=== PATIENT | male | born 1945 | race Caucasian/White ===

== ENCOUNTER → 2018-08-14 | Outpatient (CLI) | payer MEDICARE | END | disposition home or self-care (01) | LOC: RAD 08:54 | PROVIDERS: ATTEND Surgery | DX: K50.90 Crohn's disease, unspecified, without complications (principal); Z93.2 Ileostomy status | CPT/HCPCS: 74270 ==

== ENCOUNTER → 2018-10-01 | Outpatient (CLI) | payer MEDICARE ==
[~2018-10-01] MED LIST: LEVO50TA5 PO; MERC50TA17 PO; MULT1TAB60 PO; NAPR220C2 PO; SIMV20TA3 PO; TEST5GEL18 TP
[2018-10-01 10:12] LABS: MEAN CORPUSCULAR HEMOGLOBIN 35.1 pg (27.5-34.5); MEAN CORPUSCULAR VOLUME 100.5 fL (81-97); MEAN PLATELET VOLUME 8.9 fL (7.4-10.4); PLATELET COUNT 248 x10^3/uL (130-400); RED BLOOD COUNT 3.72 x10^6/uL (4.38-5.82); RED CELL DISTRIBUTION WIDTH 23.3 % (9.4-14.8)
[2018-10-01 10:18] LABS: ALBUMIN 4.1 g/dL (3.4-5.0); ANION GAP 5 mmol/L (5-15); CALCIUM 9.5 mg/dL (8.5-10.1); CHLORIDE 104 mmol/L (98-107)
[2018-10-01 10:22] LABS: ALANINE AMINOTRANSFERASE 31 U/L (12-78); ALKALINE PHOSPHATASE 76 U/L (45-117); BILIRUBIN,TOTAL 0.7 mg/dL (0.2-1.0); CREATININE 1.82 mg/dL (0.7-1.3); TOTAL PROTEIN 7.8 g/dL (6.4-8.2)
[2018-10-01 10:35] LABS: ANISOCYTOSIS 1+; BASOPHILS # (AUTO) 0.01 x10^3/uL (0-0.1); BASOPHILS % (AUTO) 0 % (0-1); EOSINOPHILS # (AUTO) 0.07 x10^3/uL (0-0.4); EOSINOPHILS % (AUTO) 2 % (1-7); LYMPHOCYTES # (AUTO) 0.71 x10^3/uL (1-3.4); LYMPHOCYTES % (AUTO) 18 % (22-44); MD MORPH REVIEW ONLY; MONOCYTES # (AUTO) 0.23 x10^3/uL (0.2-0.8); MONOCYTES % (AUTO) 6 % (2-9); NEUTROPHILS # (AUTO) 2.92 x10^3/uL (1.8-6.8); NEUTROPHILS % (AUTO) 74 % (42-75)
[2018-10-01 10:36] LABS: <PLATELET ESTIMATE> ADEQUATE; <PLT MORPHOLOGY> NORMAL PLT MORPH
== END | disposition home or self-care (01) ==
LOC: STAR 08:56
PROVIDERS: ATTEND Surgery
DX: Z01.818 Encounter for other preprocedural examination (principal)
CPT/HCPCS: 36415; 80053; 85025; 93005

== ENCOUNTER 2018-10-09 09:00 | Inpatient (IN) | payer MEDICARE ==
[~2018-10-09] VITALS: Ht 189.2 cm; Wt 90.8 kg
[2018-10-09] MEDS ORDERED: LACTATED RINGERS 1,000 ML IV SCH (11:20)
[2018-10-09] MEDS ORDERED: MIDAZOLAM 1 MG/ML, 2ML ONE (12:17)
[2018-10-09] MEDS ORDERED: FENTANYL PF 250 MCG/5ML ONE (12:17)
[2018-10-09] MEDS ORDERED: ONDANSETRON 2MG/ML, 2ML ONE (12:20)
[2018-10-09] MEDS ORDERED: ROCURONIUM 10 MG/ML,10ML ONE (12:20)
[2018-10-09] MEDS ORDERED: CEFOTETAN 2 GM ONE (12:20)
[2018-10-09] MEDS ORDERED: SUCCINYLCHOLINE 20 MG/ML, 10ML ONE (12:20)
[2018-10-09] MEDS ORDERED: PROPOFOL 10 MG/ML, 20ML ONE (12:20)
[2018-10-09] MEDS ORDERED: DEXAMETHASONE 4 MG/ML, 1ML ONE (12:20)
[2018-10-09] MEDS ORDERED: FENTANYL PF 100 MCG/2ML ONE ×2 (14:04→14:50)
[2018-10-09] MEDS ORDERED: PROMETHAZINE 12.5 MG SUPP PR PRN (14:30)
[2018-10-09] MEDS ORDERED: MIDAZOLAM 1 MG/ML, 2ML IV PRN (14:30)
[2018-10-09] MEDS ORDERED: LORazepam 2 MG/ML, 1ML IVPush PRN (14:30)
[2018-10-09] MEDS ORDERED: EPHEDRINE 50 MG/ML, 1ML IM PRN (14:30)
[2018-10-09] MEDS ORDERED: DIPHENHYDRAMINE 50 MG/ML, 1ML IVPush PRN ×2 (14:30→16:30)
[2018-10-09] MEDS ORDERED: ACETAMINOPHEN 325 MG TABLET PO PRN (14:30)
[2018-10-09] MEDS ORDERED: OXYcodone 5 MG/5 ML ORAL.SOL UDC PO PRN (14:30)
[2018-10-09] MEDS ORDERED: ONDANSETRON ODT 8 MG PO PRN (14:30)
[2018-10-09] MEDS ORDERED: PROMETHAZINE 25 MG/ML, 1ML IV PRN (14:30)
[2018-10-09] MEDS ORDERED: LABETALOL 5MG/ML, 20ML IV PRN (14:30)
[2018-10-09] MEDS ORDERED: PROMETHAZINE 25 MG SUPP PR PRN (14:30)
[2018-10-09] MEDS ORDERED: ONDANSETRON 2MG/ML, 2ML IV PRN ×2 (14:30→16:30)
[2018-10-09] MEDS ORDERED: EPHEDRINE 50 MG/ML, 1ML IVPush PRN (14:30)
[2018-10-09] MEDS ORDERED: OXYcodone 5 MG/5 ML ORAL.SOL UDC ONE (14:50)
[2018-10-09] MEDS: FENTANYL PF 100 MCG/2ML IV PRN ×2 (15:01→15:09)
[2018-10-09] MEDS ORDERED: morphine SULFATE 10 MG/ML, 1ML ONE (15:11)
[2018-10-09] MEDS: MORPHINE SULFATE 4 MG/ML, 1ML IVPush PRN ×2 (15:13→15:20)
[2018-10-09 16:15] VITALS: BP 112/42
[2018-10-09] MEDS ORDERED: ACETAMINOPHEN 100 ML IV PRN (16:30)
[2018-10-09] MEDS ORDERED: CALCIUM CARBONATE 500 MG TAB.CHEW PO PRN (16:30)
[2018-10-09] MEDS ORDERED: DEXAMETHASONE 4 MG/ML, 1ML IVPush PRN (16:30)
[2018-10-09] MEDS ORDERED: HYDROmorphone 1 MG/ML, 1ML IVPush PRN (16:30)
[2018-10-09] MEDS ORDERED: SCOPOLAMINE PATCH, 1.5MG PATCH.TD72 TD PRN (16:30)
[2018-10-09] MEDS ORDERED: HALOPERIDOL 5 MG/ML IVPush PRN (16:30)
[2018-10-09] MEDS ORDERED: ACETAMINOPHEN 100 ML IV SCH (16:30)
[2018-10-09] MEDS: D5%-0.45NACL+KCL 20MEQ 1,000 ML IV SCH (17:19)
[2018-10-09] MEDS: ACETAMINOPHEN 500 MG TABLET PO SCH ×2 (17:20→22:51)
[2018-10-09] MEDS: OXYcodone IR 5MG TABLET PO PRN ×2 (18:27→22:51)
[2018-10-09 20:12] VITALS: BP 114/53
[2018-10-09] MEDS: SIMVASTATIN 20 MG TABLET PO SCH (21:26)
[2018-10-09] MEDS: IBUPROFEN 800 MG TABLET PO SCH (21:26)
[2018-10-09 23:55] VITALS: BP 110/55
[2018-10-10] MEDS: OXYcodone IR 5MG TABLET PO PRN ×4 (03:10→21:02)
[2018-10-10 03:47] VITALS: BP 114/67
[2018-10-10] MEDS ORDERED: LEVOTHYROXINE 25 MCG TABLET ONE (05:35)
[2018-10-10] MEDS: ACETAMINOPHEN 500 MG TABLET PO SCH ×4 (05:37→23:49)
[2018-10-10] MEDS: LEVOTHYROXINE 50 MCG TABLET PO SCH (05:38)
[2018-10-10] MEDS: D5%-0.45NACL+KCL 20MEQ 1,000 ML IV SCH ×2 (06:35→21:06)
[2018-10-10 07:15] VITALS: BP 104/65
[2018-10-10] MEDS: IBUPROFEN 800 MG TABLET PO SCH ×3 (08:49→21:03)
[2018-10-10 09:56] LABS: ANION GAP 5 mmol/L (5-15); CALCIUM 9.1 mg/dL (8.5-10.1); CHLORIDE 106 mmol/L (98-107); CREATININE 1.83 mg/dL (0.7-1.3)
[2018-10-10 09:57] LABS: MEAN CORPUSCULAR HGB CONC 34.1 g/dL (33.2-36.2); MEAN CORPUSCULAR VOLUME 102.8 fL (81-97); MEAN PLATELET VOLUME 8.9 fL (7.4-10.4); PLATELET COUNT 248 x10^3/uL (130-400); RED BLOOD COUNT 3.28 x10^6/uL (4.38-5.82); RED CELL DISTRIBUTION WIDTH 22.6 % (9.4-14.8)
[2018-10-10 10:48] LABS: MD YES
[2018-10-10 10:51] LABS: BANDS%(MANUAL) 7 % (0-7); BASOS#(MANUAL) 0.07 x10^3/uL (0-0.1); BASOS% (MANUAL) 1 % (0-1); LYMPH#(MANUAL) 0.64 x10^3/uL (1-3.4); LYMPHS% (MANUAL) 9 % (22-44); MONOS#(MANUAL) 0.14 x10^3/uL (0.3-2.7); MONOS% (MANUAL) 2 % (2-9); SEG#(MANUAL) 5.75 x10^3/uL (1.8-6.8); SEGS% (MANUAL) 81 % (42-75)
[2018-10-10 10:53] LABS: <PLATELET ESTIMATE> ADEQUATE; <PLT MORPHOLOGY> NORMAL PLT MORPH; ANISOCYTOSIS 1+
[2018-10-10] MEDS: ENOXAPARIN 40 MG/0.4 ML SQ SCH (12:03)
[2018-10-10 15:31] VITALS: BP 109/50
[2018-10-10 19:19] VITALS: BP 115/66
[2018-10-10] MEDS: SIMVASTATIN 20 MG TABLET PO SCH (21:03)
[2018-10-11 02:17] VITALS: BP 108/61
[2018-10-11 03:34] LABS: MEAN CORPUSCULAR HEMOGLOBIN 34.7 pg (27.5-34.5); MEAN CORPUSCULAR HGB CONC 33.6 g/dL (33.2-36.2); MEAN CORPUSCULAR VOLUME 103.4 fL (81-97); MEAN PLATELET VOLUME 8.9 fL (7.4-10.4); PLATELET COUNT 227 x10^3/uL (130-400); RED BLOOD COUNT 3.09 x10^6/uL (4.38-5.82); RED CELL DISTRIBUTION WIDTH 22.6 % (9.4-14.8)
[2018-10-11 03:38] LABS: ANION GAP 4 mmol/L (5-15); CALCIUM 8.7 mg/dL (8.5-10.1); CHLORIDE 104 mmol/L (98-107); CREATININE 1.89 mg/dL (0.7-1.3)
[2018-10-11 04:00] LABS: MD YES
[2018-10-11 04:04] LABS: BAND#(MANUAL) 0.07 x10^3/uL; BANDS%(MANUAL) 1 % (0-7); LYMPHS% (MANUAL) 6 % (22-44); MONOS#(MANUAL) 0.46 x10^3/uL (0.3-2.7); MONOS% (MANUAL) 7 % (2-9); SEG#(MANUAL) 5.68 x10^3/uL (1.8-6.8); SEGS% (MANUAL) 86 % (42-75)
[2018-10-11 04:06] LABS: <PLATELET ESTIMATE> ADEQUATE; <PLT MORPHOLOGY> NORMAL PLT MORPH; ANISOCYTOSIS 1+
[2018-10-11] MEDS ORDERED: SODIUM CHLORIDE 0.9% 1,000ML IVBOLUS ONE (06:00)
[2018-10-11] MEDS ORDERED: LEVOTHYROXINE 25 MCG TABLET ONE (06:08)
[2018-10-11] MEDS: OXYcodone IR 5MG TABLET PO PRN (06:12)
[2018-10-11] MEDS: ACETAMINOPHEN 500 MG TABLET PO SCH ×4 (06:12→23:30)
[2018-10-11] MEDS: LEVOTHYROXINE 50 MCG TABLET PO SCH (06:12)
[2018-10-11 07:13] VITALS: BP 118/71
[2018-10-11] MEDS: IBUPROFEN 800 MG TABLET PO SCH ×3 (08:29→22:34)
[2018-10-11] MEDS: D5%-0.45NACL+KCL 20MEQ 1,000 ML IV SCH (10:44)
[2018-10-11] MEDS: ENOXAPARIN 40 MG/0.4 ML SQ SCH (11:44)
[2018-10-11 12:45] VITALS: BP 122/68
[2018-10-11 19:42] VITALS: BP 131/75
[2018-10-11] MEDS: SIMVASTATIN 20 MG TABLET PO SCH (22:34)
[2018-10-12 01:35] VITALS: BP 116/67
[2018-10-12] MEDS: D5%-0.45NACL+KCL 20MEQ 1,000 ML IV SCH ×2 (02:28→16:00)
[2018-10-12 03:46] LABS: ANION GAP 7 mmol/L (5-15); CHLORIDE 103 mmol/L (98-107); CREATININE 2.05 mg/dL (0.7-1.3)
[2018-10-12 04:02] LABS: MEAN CORPUSCULAR HEMOGLOBIN 34.9 pg (27.5-34.5); MEAN CORPUSCULAR HGB CONC 33.6 g/dL (33.2-36.2); MEAN CORPUSCULAR VOLUME 103.8 fL (81-97); MEAN PLATELET VOLUME 9.3 fL (7.4-10.4); PLATELET COUNT 234 x10^3/uL (130-400); RED CELL DISTRIBUTION WIDTH 22.8 % (9.4-14.8)
[2018-10-12 04:26] LABS: MD YES
[2018-10-12 04:30] LABS: ANISOCYTOSIS 1+; BASOS#(MANUAL) 0.06 x10^3/uL (0-0.1); BASOS% (MANUAL) 1 % (0-1); EOS#(MANUAL) 0.12 x10^3/uL (0.0-0.4); EOS% (MANUAL) 2 % (1-7); LYMPH#(MANUAL) 0.35 x10^3/uL (1-3.4); LYMPHS% (MANUAL) 6 % (22-44); MONOS#(MANUAL) 0.46 x10^3/uL (0.3-2.7); MONOS% (MANUAL) 8 % (2-9); NRBC % (MANUAL) 1 % (0-1); REACTIVE LYMPHS # (MANUAL) 0.06 x10^3/uL (0-0); REACTIVE LYMPHS % (MANUAL) 1 % (0-0); SEG#(MANUAL) 4.76 x10^3/uL (1.8-6.8); SEGS% (MANUAL) 82 % (42-75)
[2018-10-12 04:31] LABS: <PLATELET ESTIMATE> ADEQUATE; LARGE PLATELETS 1+
[2018-10-12] MEDS ORDERED: LEVOTHYROXINE 25 MCG TABLET ONE (05:56)
[2018-10-12] MEDS: LEVOTHYROXINE 50 MCG TABLET PO SCH (05:58)
[2018-10-12] MEDS: ACETAMINOPHEN 500 MG TABLET PO SCH ×4 (05:58→21:59)
[2018-10-12 07:13] VITALS: BP 129/76
[2018-10-12] MEDS: IBUPROFEN 800 MG TABLET PO SCH (08:24)
[2018-10-12] MEDS ORDERED: SODIUM CHLORIDE 0.9% 1,000ML IVBOLUS ONE (09:30)
[2018-10-12] MEDS: ENOXAPARIN 40 MG/0.4 ML SQ SCH (11:47)
[2018-10-12 14:14] VITALS: BP 127/84
[2018-10-12 19:11] VITALS: BP 125/81
[2018-10-12] MEDS: SIMVASTATIN 20 MG TABLET PO SCH (22:00)
[2018-10-12] MEDS: OXYcodone IR 5MG TABLET PO PRN (22:03)
[2018-10-13 01:34] VITALS: BP 122/79
[2018-10-13 05:40] LABS: MEAN CORPUSCULAR HEMOGLOBIN 35.1 pg (27.5-34.5); MEAN CORPUSCULAR HGB CONC 33.8 g/dL (33.2-36.2); MEAN CORPUSCULAR VOLUME 103.9 fL (81-97); MEAN PLATELET VOLUME 8.9 fL (7.4-10.4); PLATELET COUNT 273 x10^3/uL (130-400); RED BLOOD COUNT 3.13 x10^6/uL (4.38-5.82)
[2018-10-13 05:41] LABS: ANION GAP 8 mmol/L (5-15); CALCIUM 9.3 mg/dL (8.5-10.1); CHLORIDE 107 mmol/L (98-107)
[2018-10-13 05:43] LABS: CREATININE 1.98 mg/dL (0.7-1.3)
[2018-10-13] MEDS: LEVOTHYROXINE 50 MCG TABLET PO SCH (05:45)
[2018-10-13] MEDS: ACETAMINOPHEN 500 MG TABLET PO SCH (05:45)
[2018-10-13] MEDS: D5%-0.45NACL+KCL 20MEQ 1,000 ML IV SCH (06:18)
[2018-10-13 06:19] LABS: BASOPHILS # (AUTO) 0.02 x10^3/uL (0-0.1); BASOPHILS % (AUTO) 0 % (0-1); EOSINOPHILS # (AUTO) 0.22 x10^3/uL (0-0.4); EOSINOPHILS % (AUTO) 4 % (1-7); LYMPHOCYTES # (AUTO) 0.44 x10^3/uL (1-3.4); LYMPHOCYTES % (AUTO) 9 % (22-44); MD SCAN; MONOCYTES # (AUTO) 0.25 x10^3/uL (0.2-0.8); MONOCYTES % (AUTO) 5 % (2-9); NEUTROPHILS # (AUTO) 4.27 x10^3/uL (1.8-6.8); NEUTROPHILS % (AUTO) 82 % (42-75)
[2018-10-13] MEDS: OXYcodone IR 5MG TABLET PO PRN (08:23)
[2018-10-13 08:30] VITALS: BP 108/62
[2018-10-13] MEDS ORDERED: OXYC-302 PO (10:27)
[2018-10-13 10:39] VITALS: BP 132/86
== END 2018-10-13 11:30 | disposition home or self-care (01) | DRG 329 ==
LOC: ORIP 10:36 → 4NOR 15:58
PROVIDERS: ADMIT Surgery; ATTEND Surgery
PROC: 0DTF0ZZ Resection of Right Large Intestine, Open Approach (ICD-10-PCS; 2018-10-09)
PROC: 0DBB0ZZ Excision of Ileum, Open Approach (ICD-10-PCS; principal; 2018-10-09 12:30)
DX: Z43.2 Encounter for attention to ileostomy (principal); N17.0 Acute kidney failure with tubular necrosis; K50.90 Crohn's disease, unspecified, without complications; E88.41 MELAS syndrome; I10 Essential (primary) hypertension; Z91.041 Radiographic dye allergy status; Z88.2 Allergy status to sulfonamides; Z83.3 Family history of diabetes mellitus; Z80.7 Family history of other malignant neoplasms of lymphoid, hematopoietic and related tissues; Z87.891 Personal history of nicotine dependence
CPT/HCPCS: 36415; 80048; 85025; 86850; 86900; 88304; 88307; G0378; J1100; J1650; J2250; J2405; J2704; J3010; J0330; J3480; J3490; J7030; J7120